=== PATIENT | male | born 1975 | race African-American/Black ===

== ENCOUNTER 2023-12-04 18:01 | Emergency (ER) | payer BC, SELFPAY ==
--- NOTE | ~2023-12-04 | XR_ITS ---
XR chest 2V Ordering provider: Norma Prince APRN History: 48 years Male with . cough and fever . Comparison: None. FINDINGS: MEDIASTINUM: The cardiac silhouette is not enlarged. LUNGS: No infiltrates, effusions or pneumothorax. Prominent markings in the lower lobes. OTHER: No free air under the diaphragm. IMPRESSION: No acute cardiopulmonary pathology. Reviewed, dictated and finalized at location A.
[2023-12-04 18:14] VITALS: BP 156/110; PULSE 87; RESP 16; TEMP 37.1; O2SAT 100
[2023-12-04 18:16] VITALS: BP 149/104
--- NOTE | 2023-12-04 18:29 | ED.URI ---
HPI - URI/Sore Throat General Chief Complaint: Upper Respiratory Infection Stated Complaint: Congestion/Fever/Panic Attacks/Headaches Time Seen by Provider: 12/04/23 18:30 Source: patient, RN notes reviewed and old records reviewed Mode of arrival: ambulatory Limitations: no limitations History of Present Illness HPI Narrative: Patient who is visiting from out of town presents with complaints of fever, headache, chills, congestion, body aches. Reports that symptoms have been present for 2 or 3 days. He has not taken anything for his symptoms today. Elevated blood pressure is noted. Patient reports that he is from out of town. Does not have his medications with him. reports that he never picked him up from the pharmacy when they were prescribed 3 weeks ago. After long discussion, he agreed to call and have his medication transferred here so that he could begin taking it. He denies any chest pain or shortness of breath. He is not in any distress at this time. He does report that he gets nervous when going to healthcare facilities. States that he felt like he was having a panic attack earlier, but is no longer nervous. Related Data Home Medications Medication Instructions Recorded Confirmed atorvastatin 20 mg tablet 20 mg PO DAILY 12/04/23 12/04/23 fluoxetine 10 mg capsule 10 mg PO DAILY 12/04/23 12/04/23 hydrochlorothiazide 12.5 mg tablet 12.5 mg PO DAILY 12/04/23 12/04/23 losartan 50 mg-hydrochlorothiazide 1 tablet PO DAILY 12/04/23 12/04/23 12.5 mg tablet Allergies Allergy/AdvReac Type Severity Reaction Status Date / Time No Known Allergies Allergy Verified 12/04/23 18:43 Review of Systems Review of Systems: All systems reviewed & are unremarkable except as noted in HPI and below Constitutional: Constitutional: Reports no additional constitutional complaints ENT: Reports system reviewed and no additional complaints, except as documented, Reports as per HPI, Reports nasal congestion, Reports nasal discharge, Reports post nasal drip and Reports sinus pressure Cardiovascular: Cardiovascular: Reports no additional cardiovascular complaints Respiratory: Respiratory: Reports no additional respiratory complaints, Reports chest congestion, Reports cough and Reports pain with cough Gastrointestinal: Gastrointestinal: Reports no additional gastrointestinal complaints Musculoskeletal: Musculoskeletal: Reports myalgias Neurologic: Reports headache(s) Exam Const: General: cooperative, no acute distress, alert and awake Orientation/consciousness: oriented to person, oriented to place and oriented to time HENMT: Head: normal to inspection, normocephalic and atraumatic Ears: TM's normal bilaterally Face/Nose/Sinus: Nasal discharge present clear bilateral Throat: posterior oropharynx abnormal erythema Eyes: Sclera: scleral abnormality bilateral scleral injection diffuse Resp: Effort & Inspection: normal respiratory effort and able to speak in complete sentences Auscultation: clear to auscultation bilaterally, no crackles, no rales, no rhonchi, no wheezes and diminished lung sounds bilateral throughout Cardio: Palpation: normal PMI Rate: regular rate Rhythm: regular rhythm Heart sounds: S1 normal heart sound present and S2 normal heart sound present Neuro: General: oriented to person, oriented to place and oriented to time Cranial nerves: Yes CN's II-XII intact bilaterally Psych: Appearance: grossly normal Thought process: Normal thought process present Insight: Good insight present (Psych) Judgement: Good judgement present (Psych) Course Course Level of Care: Express Care Visit Vital Signs Vital signs: Vital Signs Temperature 98.8 F 12/04/23 18:14 Pulse Rate 87 12/04/23 18:14 Respiratory Rate 16 12/04/23 18:14 Blood Pressure 156/110 H 12/04/23 18:14 Pulse Oximetry 100 12/04/23 18:14 Temperature 98.8 F 12/04/23 18:14 Pulse Rate 87 12/04/23 18:14 Respiratory Rate 16
[2023-12-04 18:58] LABS: EDINFLUASCREEN Negative; EDINFLUBSCREEN Negative
== END 2023-12-04 19:22 | disposition home or self-care (01) ==
PROVIDERS: Emergency Provider Nurse Practitioner Family
DX: J06.9 Acute upper respiratory infection, unspecified (principal); Z20.822 Contact with and (suspected) exposure to COVID-19
CPT/HCPCS: 71046; 87426; 87804; 99203; G0463

== ENCOUNTER 2023-12-08 23:43 | Emergency (ER) | payer BC, SELFPAY ==
[2023-12-08 23:46] VITALS: BP 195/89; PULSE 80; RESP 18; TEMP 37; O2SAT 97
[2023-12-09] MEDS: predniSONE 20 MG TABLET 40 MG PO (01:36)
[2023-12-09] MEDS: LIDOCAINE 5% PATCH 1 PATCH TRANSDERM (01:36)
[2023-12-09 01:40] VITALS: PULSE 73; RESP 18
[2023-12-09] MEDS: ALBUTEROL SULFATE NEB 2.5 MG/3 ML INH 15 MG INHALATION (01:40)
[2023-12-09] MEDS: IPRATROPIUM BR 0.02% INH SOLN 0.5 MG/2.5 ML VIAL 1 MG INHALATION (01:40)
[2023-12-09 01:45] VITALS: BP 174/112; PULSE 86; RESP 15; O2SAT 98
--- NOTE | 2023-12-09 03:12 | ED.URI ---
HPI - URI/Sore Throat General Chief Complaint: Upper Respiratory Infection Stated Complaint: uri Time Seen by Provider: 12/09/23 01:23 History of Present Illness HPI Narrative: Patient who has recently been seen for acute bronchitis presents back here for persistent symptoms. Cough, wheezing, and coughing so hard that his left side hurts. Related Data Home Medications Medication Instructions Recorded Confirmed atorvastatin 20 mg tablet 20 mg PO DAILY 12/04/23 12/04/23 fluoxetine 10 mg capsule 10 mg PO DAILY 12/04/23 12/04/23 hydrochlorothiazide 12.5 mg tablet 12.5 mg PO DAILY 12/04/23 12/04/23 losartan 50 mg-hydrochlorothiazide 1 tablet PO DAILY 12/04/23 12/04/23 12.5 mg tablet Allergies Allergy/AdvReac Type Severity Reaction Status Date / Time No Known Allergies Allergy Verified 12/04/23 18:43 Review of Systems Review of Systems: All systems reviewed & are unremarkable except as noted in HPI and below Exam Narrative: EXAMINATION OF ORGAN SYSTEMS/BODY AREAS: Constitutional: Vital signs per nursing GENERAL: Winces when he coughs HEAD: Normal with no signs of head trauma. EYES: EOMI, conjunctiva normal ENT: Hearing grossly intact LUNGS: Diffuse wheezing bilateral lungs. HEART: [Regular rate and rhythm] ABD: [Soft], slightly tender to palpation left ribs EXT: Normal range of motion SKIN: [No rashes or lesions.] NEURO: [Alert and oriented x 3. No gross focal sensory or strength deficits.] PSYCH: Normal affect Course Vital Signs Vital signs: Vital Signs Temperature 98.6 F 12/08/23 23:46 Pulse Rate 80 12/08/23 23:46 Respiratory Rate 18 12/08/23 23:46 Blood Pressure 195/89 H 12/08/23 23:46 Pulse Oximetry 97 12/08/23 23:46 Oxygen Delivery Room Air 12/08/23 23:46 Temperature 98.6 F 12/08/23 23:46 Pulse Rate 63 12/09/23 04:01 Respiratory Rate 17 12/09/23 04:01 Blood Pressure 178/106 H 12/09/23 04:01 Pulse Oximetry 99 12/09/23 04:01 Oxygen Delivery Room Air 12/08/23 23:46 MDM - URI/Sore Throat MDM Narrative Medical decision making narrative: Patient presents with symptoms consistent with acute bronchitis, already had a recent chest x-ray that was negative, he is wheezing bilaterally, low concern for pneumothorax given intact lung sounds, he is given breathing treatments here and on re-evaluation is feeling better, he is given lidocaine patch and Toradol for his rib pain and on re-evaluation is feeling much better, resting comfortably, rated go home with return precautions and follow-up instructions. Discharge Plan Discharge Clinical Impression: Acute bronchitis, Rib pain on left side Patient Disposition: Home, Self-Care Condition: Improved Instructions: Antibiotic Form, Acute Bronchitis (ED) Additional Instructions: Please stop smoking cigarettes. Please start taking your blood pressure medications and you can always return to the ER for any further issues. Prescriptions: New prednisone 20 mg tablet 40 mg PO DAILY 5 Days Qty: 10 0RF albuterol sulfate 90 mcg/actuation HFA aerosol inhaler 2 puff inhalation QID PRN (Reason: shortness of breath or wheezing) Qty: 8.5 0RF acetaminophen [Tylenol Extra Strength] 500 mg tablet 1,000 mg PO Q6H PRN (Reason: pain) Qty: 50 0RF methocarbamol 750 mg tablet 750 mg PO TID PRN (Reason: muscle spasm) Qty: 30 0RF lidocaine 5 % adhesive patch,medicated 1 patch topical DAILY Qty: 15 0RF Rx Instructions: leave on most painful area for up to 12 hrs ibuprofen 600 mg tablet 600 mg PO TID PRN (Reason: fever or pain) Qty: 30 0RF No Action atorvastatin 20 mg tablet 20 mg PO DAILY fluoxetine 10 mg capsule 10 mg PO DAILY losartan-hydrochlorothiazide 50-12.5 mg tablet 1 tablet PO DAILY hydrochlorothiazide 12.5 mg tablet 12.5 mg PO DAILY prednisone 50 mg tablet 50 mg PO DAILY Qty: 5 0RF albuterol sulfate [Ventolin HFA] 90 mcg/actuatio
[2023-12-09] MEDS: KETOROLAC 30 MG/ML VIAL (*BKC) 15 MG IM (03:24)
[2023-12-09 03:27] VITALS: BP 188/114; PULSE 64; RESP 17; O2SAT 99
[2023-12-09 03:31] VITALS: PULSE 65; RESP 17
[2023-12-09 04:01] VITALS: BP 178/106; PULSE 63; RESP 17; O2SAT 99
== END 2023-12-09 04:02 | disposition home or self-care (01) ==
PROVIDERS: Emergency Provider Emergency Medicine
DX: J20.9 Acute bronchitis, unspecified (principal); R07.81 Pleurodynia; Z79.899 Other long term (current) drug therapy
CPT/HCPCS: 94640; 96372; 99283; A9270; J1885; J7512